=== PATIENT | female | born 1960 | race Caucasian/White ===

== ENCOUNTER 2018-04-10 18:28 | Emergency (ER) | payer OTHER ==
[~2018-04-10] VITALS: Ht 162.6 cm; Wt 81.2 kg
[2018-04-10] MEDS ORDERED: LOSARTAN-HCTZ1 EAC1 (18:46)
[2018-04-10] MEDS ORDERED: CLONAZEPAM2 M1 (18:46)
[2018-04-10] MEDS ORDERED: LORATADINE5 MG/5 M3 (18:47)
[2018-04-10] MEDS ORDERED: DICLOFENAC POTA50 MG (18:47)
[2018-04-10] MEDS ORDERED: NEURONTIN800 MG (18:47)
== END 2018-04-10 21:16 | disposition home or self-care (01) ==
LOC: ER 18:28
DX: K59.09 Other constipation (principal); E86.0 Dehydration; R55 Syncope and collapse

== ENCOUNTER 2024-04-20 21:52 | Emergency (ER) | payer OTHER ==
[~2024-04-20] VITALS: Ht 162.6 cm; Wt 77.1 kg
[~2024-04-20 21:52] MED LIST: CLONAZEPAM2 M1; DICLOFENAC POTA50 MG; LORATADINE5 MG/5 M3; LOSARTAN-HCTZ1 EAC1; NEURONTIN800 MG
[2024-04-21] MEDS ORDERED: KETOROLAC TROMETHAMINE 60 MG VIAL IM STA (02:16)
[2024-04-21] MEDS ORDERED: hydrOXYzine PAMOATE 50 MG CAPSULE PO STA (02:17)
== END 2024-04-21 02:25 | disposition home or self-care (01) ==
LOC: ER 21:53
DX: R53.81 Other malaise (principal); F41.9 Anxiety disorder, unspecified; M94.0 Chondrocostal junction syndrome [Tietze]; I10 Essential (primary) hypertension
CPT/HCPCS: 36415; 93005; 96372; 99282; J1885